=== PATIENT | male | born 1965 ===

== ENCOUNTER 2024-02-22 19:31 | Inpatient (IN) | payer MEDICAID ==
[~2024-02-22] VITALS: Ht 180.3 cm; Wt 77.2 kg
[~2024-02-22 19:31] MED LIST: AMOX1TAB15 PO; EMPA10TA3 PO; FURO40 PO; GABA-1181 PO; LACT10SO10 PO; OXYC10TA48 PO; RIFAX550 PO; SPIR50TA27 PO
[2024-02-22 20:29] LABS: CALCIUM, TOTAL 9.8 mg/dL (8.8-10.5); CREATININE 1.57 mg/dL (0.60-1.30); POTASSIUM 4.7 mmol/L (3.5-5.1)
[2024-02-22 20:38] LABS: TROPONIN I-HIGH SENSITIVITY 18 ng/L (<76)
[2024-02-22 20:41] LABS: AMMONIA 156 umol/L (11-32)
[2024-02-22 21:14] LABS: BASOPHILS % (AUTO) 0.5 % (0.0-2.0); EOSINOPHILS % (AUTO) 2.9 % (1.0-6.0); HEMATOCRIT 36.7 % (41-53); HEMOGLOBIN 12.3 g/dL (13.5-17.5); LYMPHOCYTES % (AUTO) 22.8 % (22.0-44.0); MEAN CORPUSCULAR HEMOGLOBIN 37.6 pg (26.0-34.0); MEAN CORPUSCULAR HGB CONC 33.5 G/dL (31.0-37.0); MEAN CORPUSCULAR VOLUME 113 fL (80-100); MONOCYTES # (AUTO) 0.6 K/uL (0.1-1.0); MONOCYTES % (AUTO) 13.3 % (2.0-9.0); NEUTROPHILS # (AUTO) 2.6 K/uL (1.8-7.7); NEUTROPHILS % (AUTO) 60.5 % (40.0-70.0); PLATELET COUNT (AUTO) 76 K/uL (150-450); RED BLOOD CELL COUNT(AUTO) 3.26 MIL/uL (4.50-5.90); RED CELL DISTRIBUTION WIDTH 17.5 % (11.5-14.5); WHITE BLOOD COUNT (AUTO) 4.3 K/uL (4.5-11.0)
[2024-02-22 21:27] LABS: RBC MORPHOLOGY COMMENT ABNORMAL RBC MORPH
[2024-02-22] MEDS: LACTULOSE 20 GM/30 ML SOLUTION UDCUP PO ONE (22:21)
[2024-02-22 23:47] LABS: ALBUMIN 2.7 g/dL (3.4-5.0); BILIRUBIN,DIRECT 2.7 mg/dL (0.00-0.20); BILIRUBIN,TOTAL 5.5 mg/dL (0.1-1.0); TOTAL PROTEIN, SERUM 8.7 g/dL (6.4-8.2)
[2024-02-23] MEDS ORDERED: ZOLPIDEM TARTRATE 5 MG TABLET PO PRN (00:15)
[2024-02-23] MEDS ORDERED: BISACODYL 10 MG RECTAL RECTAL SUPPOSITORY PR PRN (00:15)
[2024-02-23] MEDS ORDERED: IPRATROPIUM BROMIDE 0.5 MG/2.5 ML NEB SOLUTION NEB PRN (00:15)
[2024-02-23] MEDS ORDERED: MAGNESIUM HYDROXIDE SUSPENSION 30 ML UDCUP PO PRN (00:15)
[2024-02-23] MEDS ORDERED: ACETAMINOPHEN 325 MG TABLET PO PRN (00:15)
[2024-02-23] MEDS ORDERED: ALBUTEROL SULFATE 2.5 MG/0.5 ML NEB SOLUTION NEB PRN (00:15)
[2024-02-23 01:30] VITALS: BP 118/66; PULSE 82; RESP 18; TEMP 97.8
[2024-02-23 01:30] LABS: GLUCOMETER DEV NAME(LOC) ERT.5; GLUCOSE,POINT OF CARE 176 MG/DL (70-110)
[2024-02-23] MEDS ORDERED: PNEUMOCOCCAL VACCINE POLYVALENT 0.5 ML SYRINGE [PPSV23] IM. ONE (02:30)
[2024-02-23] MEDS: ONDANSETRON HCL 4 MG/2 ML VIAL IVP PRN (03:12)
[2024-02-23] MEDS: LACTULOSE 20 GM/30 ML SOLUTION UDCUP PO SCH (03:52)
[2024-02-23 04:17] VITALS: BP 118/68; PULSE 84; RESP 18; TEMP 97.5
[2024-02-23 07:53] VITALS: BP 107/62; PULSE 96; RESP 20; TEMP 98.2
[2024-02-23] MEDS: PANTOPRAZOLE SODIUM 40 MG DR TABLET PO SCH (09:00)
[2024-02-23] MEDS: GABAPENTIN 300 MG CAPSULE PO SCH (09:00)
[2024-02-23] MEDS: SPIRONOLACTONE 50 MG TABLET PO SCH (09:00)
[2024-02-23] MEDS: EMPAGLIFLOZIN 10 MG TABLET PO SCH (09:00)
[2024-02-23] MEDS: FUROSEMIDE 40 MG TABLET PO SCH (09:00)
[2024-02-23] MEDS: RIFAXIMIN 550 MG TABLET PO SCH (09:00)
[2024-02-23 11:26] LABS: GLUCOMETER DEV NAME(LOC) 4E.2; GLUCOSE,POINT OF CARE 183 MG/DL (70-110)
[2024-02-23] MEDS: HEPARIN SODIUM,PORCINE 5,000 UNITS/ML VIAL SQ SCH (11:54)
[2024-02-23 13:03] LABS: ABG A-A DIFF O2 53.8 mmHg (10-20.0); ABG BASE EXCESS -4.8 mmol/L (-2.0-3.0); ABG CARBOXYHEMOGLOBIN 2.3 % (0.0-1.5); ABG HCO3 21.9 mmol/L (22.0-26.0); ABG METHEMOGLOBIN 0.6 % (0.0-1.5); ABG OXYGEN CONTENT 18.3 mL/dL (15.0-23.0); ABG OXYGEN SATURATION 92.3 % (95.0-98.0); ABG OXYHEMOGLOBIN 89.6 % (94.0-100.0); ABG PCO2 26 mmHg (35-45); ABG TOTAL HEMOGLOBIN 14.5 G/dL (12.0-18.0); ALLEN TEST, BLOOD GAS Positive; O2 DEVICE,BLOOD GAS ROOM AIR (ROOM AIR); SITE, BLOOD GAS LFT RADIAL; SOURCE, BLOOD GAS ARTERIAL
[2024-02-23 13:34] VITALS: BP 117/63; PULSE 84; RESP 20; TEMP 98.4
[2024-02-23 15:29] LABS: EOSINOPHILS % (AUTO) 0.2 % (1.0-6.0); HEMATOCRIT 40.5 % (41-53); HEMOGLOBIN 13.5 g/dL (13.5-17.5); LYMPHOCYTES # (AUTO) 0.3 K/uL (1.0-4.8); LYMPHOCYTES % (AUTO) 3.3 % (22.0-44.0); MEAN CORPUSCULAR HEMOGLOBIN 37.9 pg (26.0-34.0); MEAN CORPUSCULAR HGB CONC 33.3 G/dL (31.0-37.0); MEAN CORPUSCULAR VOLUME 114 fL (80-100); MONOCYTES # (AUTO) 0.6 K/uL (0.1-1.0); MONOCYTES % (AUTO) 6.8 % (2.0-9.0); NEUTROPHILS # (AUTO) 8.4 K/uL (1.8-7.7); NEUTROPHILS % (AUTO) 89.7 % (40.0-70.0); PLATELET COUNT (AUTO) 85 K/uL (150-450); RED BLOOD CELL COUNT(AUTO) 3.56 MIL/uL (4.50-5.90); RED CELL DISTRIBUTION WIDTH 17.8 % (11.5-14.5); WHITE BLOOD COUNT (AUTO) 9.4 K/uL (4.5-11.0)
[2024-02-23 15:34] LABS: CALCIUM, TOTAL 9.5 mg/dL (8.8-10.5); CREATININE 1.59 mg/dL (0.60-1.30); POTASSIUM 5.4 mmol/L (3.5-5.1)
[2024-02-23 15:46] LABS: RBC MORPHOLOGY COMMENT ABNORMAL RBC MORPH
[2024-02-23 16:00] VITALS: BP 125/75; PULSE 93; RESP 22; TEMP 98
[2024-02-23 20:00] VITALS: BP 114/72; PULSE 88; PULSE 94; RESP 19; TEMP 98.2
[2024-02-24] VITALS: BP 141/79; PULSE 88; RESP 18; TEMP 98.4
[2024-02-24 04:00] VITALS: BP 132/71; PULSE 100; RESP 25; TEMP 97.9
[2024-02-24 05:39] LABS: BASOPHILS % (AUTO) 0.4 % (0.0-2.0); EOSINOPHILS % (AUTO) 0.4 % (1.0-6.0); HEMATOCRIT 38.7 % (41-53); HEMOGLOBIN 13.4 g/dL (13.5-17.5); LYMPHOCYTES # (AUTO) 0.9 K/uL (1.0-4.8); MEAN CORPUSCULAR HEMOGLOBIN 38.8 pg (26.0-34.0); MEAN CORPUSCULAR HGB CONC 34.5 G/dL (31.0-37.0); MEAN CORPUSCULAR VOLUME 113 fL (80-100); MONOCYTES % (AUTO) 7.3 % (2.0-9.0); NEUTROPHILS # (AUTO) 11.2 K/uL (1.8-7.7); NEUTROPHILS % (AUTO) 84.9 % (40.0-70.0); PLATELET COUNT (AUTO) 89 K/uL (150-450); RED BLOOD CELL COUNT(AUTO) 3.44 MIL/uL (4.50-5.90); RED CELL DISTRIBUTION WIDTH 17.7 % (11.5-14.5); WHITE BLOOD COUNT (AUTO) 13.2 K/uL (4.5-11.0)
[2024-02-24 05:49] LABS: ALBUMIN 2.5 g/dL (3.4-5.0); BILIRUBIN,TOTAL 13.4 mg/dL (0.1-1.0); CALCIUM, TOTAL 9.5 mg/dL (8.8-10.5); CREATININE 1.63 mg/dL (0.60-1.30); MAGNESIUM 2.2 mg/dL (1.80-2.40); PHOSPHORUS 4.3 mg/dL (2.5-4.9); POTASSIUM 4.9 mmol/L (3.5-5.1); TOTAL PROTEIN, SERUM 8.4 g/dL (6.4-8.2)
[2024-02-24 06:06] LABS: RBC MORPHOLOGY COMMENT ABNORMAL RBC MORPH
[2024-02-24 08:00] VITALS: BP 133/63; PULSE 98; RESP 24; TEMP 97.5
[2024-02-24 11:21] LABS: GLUCOMETER DEV NAME(LOC) ICU.S6; GLUCOSE,POINT OF CARE 195 MG/DL (70-110)
[2024-02-24 12:00] VITALS: BP 132/66; PULSE 101; PULSE 96; RESP 24; TEMP 97.7
[2024-02-24 16:00] VITALS: BP 125/62; PULSE 85; PULSE 95; RESP 22; TEMP 97.8
[2024-02-24 20:00] VITALS: BP 125/74; PULSE 97; RESP 20; TEMP 98.5
[2024-02-24] MEDS: ETHYL ALCOHOL 62% ANTISEPTIC NASAL SANITIZER 0.6 ML AMPUL NASAL SCH (23:53)
[2024-02-25] VITALS (7 sets, daily range): BP systolic 110–132; BP diastolic 67–96; PULSE 57–95; RESP 20–23; TEMP 97.6–98.8
[2024-02-25 06:02] LABS: EOSINOPHILS % (AUTO) 0.9 % (1.0-6.0); HEMATOCRIT 40.6 % (41-53); HEMOGLOBIN 13.6 g/dL (13.5-17.5); LYMPHOCYTES # (AUTO) 0.9 K/uL (1.0-4.8); LYMPHOCYTES % (AUTO) 6.5 % (22.0-44.0); MEAN CORPUSCULAR HEMOGLOBIN 38.4 pg (26.0-34.0); MEAN CORPUSCULAR HGB CONC 33.5 G/dL (31.0-37.0); MEAN CORPUSCULAR VOLUME 115 fL (80-100); MONOCYTES # (AUTO) 1.3 K/uL (0.1-1.0); MONOCYTES % (AUTO) 9.2 % (2.0-9.0); NEUTROPHILS # (AUTO) 11.9 K/uL (1.8-7.7); NEUTROPHILS % (AUTO) 83.4 % (40.0-70.0); PLATELET COUNT (AUTO) 83 K/uL (150-450); RED BLOOD CELL COUNT(AUTO) 3.53 MIL/uL (4.50-5.90); RED CELL DISTRIBUTION WIDTH 17.5 % (11.5-14.5); WHITE BLOOD COUNT (AUTO) 14.2 K/uL (4.5-11.0)
[2024-02-25 06:16] LABS: CALCIUM, TOTAL 9.9 mg/dL (8.8-10.5); CREATININE 1.45 mg/dL (0.60-1.30); POTASSIUM 3.9 mmol/L (3.5-5.1)
[2024-02-25 19:47] LABS: GLUCOMETER DEV NAME(LOC) ICU.S6; GLUCOSE,POINT OF CARE 177 MG/DL (70-110)
[2024-02-26 04:45] VITALS: BP 106/64; PULSE 71; RESP 20; TEMP 98.3
[2024-02-26 06:40] LABS: GLUCOMETER DEV NAME(LOC) 5S.1B; GLUCOSE,POINT OF CARE 137 MG/DL (70-110)
[2024-02-26 07:04] LABS: BASOPHILS % (AUTO) 0.6 % (0.0-2.0); EOSINOPHILS % (AUTO) 4.8 % (1.0-6.0); HEMATOCRIT 34.5 % (41-53); HEMOGLOBIN 11.7 g/dL (13.5-17.5); LYMPHOCYTES # (AUTO) 1.2 K/uL (1.0-4.8); LYMPHOCYTES % (AUTO) 13.3 % (22.0-44.0); MEAN CORPUSCULAR HEMOGLOBIN 38.6 pg (26.0-34.0); MEAN CORPUSCULAR VOLUME 114 fL (80-100); MONOCYTES # (AUTO) 0.9 K/uL (0.1-1.0); MONOCYTES % (AUTO) 9.9 % (2.0-9.0); NEUTROPHILS # (AUTO) 6.5 K/uL (1.8-7.7); NEUTROPHILS % (AUTO) 71.4 % (40.0-70.0); PLATELET COUNT (AUTO) 80 K/uL (150-450); RED BLOOD CELL COUNT(AUTO) 3.04 MIL/uL (4.50-5.90); RED CELL DISTRIBUTION WIDTH 17.1 % (11.5-14.5); WHITE BLOOD COUNT (AUTO) 9.1 K/uL (4.5-11.0)
[2024-02-26 07:07] LABS: RBC MORPHOLOGY COMMENT ABNORMAL RBC MORPH
[2024-02-26 07:12] LABS: CALCIUM, TOTAL 9.1 mg/dL (8.8-10.5); CREATININE 1.32 mg/dL (0.60-1.30)
[2024-02-26 07:16] LABS: POTASSIUM 4.2 mmol/L (3.5-5.1)
[2024-02-26 08:20] VITALS: BP 105/65; PULSE 72; RESP 18; TEMP 97.8
[2024-02-26 11:49] VITALS: BP 100/56; PULSE 70; RESP 18; TEMP 97.3
[2024-02-26 15:19] VITALS: BP 99/52; PULSE 74; RESP 17; TEMP 97.9
[2024-02-26] MEDS ORDERED: LACT10SO10 PO (16:45)
[2024-02-26] MEDS: SODIUM CHLORIDE 1 GM TABLET PO ONE (17:35)
[2024-02-26 19:59] VITALS: BP 101/64; PULSE 64; RESP 18; TEMP 98.1
[2024-02-27] MEDS ORDERED: GABA-1181 PO (15:34)
[2024-02-27] MEDS ORDERED: OXYC10TA48 PO (15:34)
[2024-02-27] MEDS ORDERED: EMPA10TA3 PO (15:34)
[2024-02-27] MEDS ORDERED: FURO40 PO (15:34)
[2024-02-27] MEDS ORDERED: SPIR50TA27 PO (15:34)
== END 2024-02-26 21:40 | disposition home or self-care (01) ==
LOC: EMS 19:31 → EDH 02-23 00:02 → 4E 02-23 01:20 → ICU 02-23 14:20 → 5S 02-25 21:55 → 5N 02-26 06:15
PROVIDERS: ADMIT Hospitalist; ATTEND Hospitalist
DX: K76.82 Hepatic encephalopathy (principal); D69.6 Thrombocytopenia, unspecified; E88.09 Other disorders of plasma-protein metabolism, not elsewhere classified; Z89.611 Acquired absence of right leg above knee; E11.9 Type 2 diabetes mellitus without complications; G89.29 Other chronic pain; D72.829 Elevated white blood cell count, unspecified; K74.60 Unspecified cirrhosis of liver; I10 Essential (primary) hypertension; N28.9 Disorder of kidney and ureter, unspecified; Z83.3 Family history of diabetes mellitus
CPT/HCPCS: 36600; 71045; 80048; 80053; 80076; 82140; 82805; 82962; 83735; 84100; 84484; 85025; 93005; 99285; J1644; J2405; Q9967; 36415-L1; 36415-TC